=== PATIENT | female | born 1940 | race Caucasian/White ===

== ENCOUNTER 2018-07-16 03:05 | Inpatient (IN) | payer OTHER ==
[~2018-07-16] VITALS: Ht 170.2 cm; Wt 69.4 kg
[2018-07-16 03:05] VITALS: BP 143/55
--- NOTE | 2018-07-16 03:05 | NUR ---
PT PRESENTED ER WITH C/O SYNCOPE AND ABDOMINAL PAIN X 1 DAY. ONSET WAS 2100 LAST NIGHT. PT STATED SHE HAS N/V BUT DENIES DIARRHEA AND FEVER. NO FEVER AT THIS TIME. PT SON FOUND HER ON THE FLOOR AT HOME. PT IS A/O X 4. PT BOWEL SOUNDS AT IN ALL 4 Q.SKIN IS PINK/WARM/DRY; UNSTEADY GAIT; PATIENT POSITIONED FOR COMFORT; HOB ELEVATED; BEDRAILS UP X2; BED DOWN. ER MD MADE AWARE OF PT STATUS.
--- NOTE | 2018-07-16 03:05 | NUR ---
BIBA TO BED # 4
[2018-07-16] MEDS ORDERED: FAMOTIDINE 20 MG/2 ML VIAL IVP ONE (03:10)
[2018-07-16] MEDS ORDERED: ONDANSETRON 4 MG/2 ML VIAL IVP ONE ×2 (03:10→05:30)
[2018-07-16] MEDS ORDERED: NACL 0.9% 1,000 ML IV SCH (03:10)
--- NOTE | 2018-07-16 03:39 | NUR ---
PT WENT TO CT
[2018-07-16 03:46] LABS: ANION GAP 11.9 (8-16); CARBON DIOXIDE 28.9 mmol/L (21-32); CHLORIDE 105 mmol/L (98-107); CREATININE 0.9 mg/dL (0.6-1.3); GLUCOSE 196 mg/dL (74-106); POTASSIUM 4.8 mmol/L (3.5-5.1); SODIUM SERUM 141 mmol/L (136-145); UREA NITROGEN, BLOOD 27 mg/dL (7-18)
[2018-07-16 03:49] LABS: HEMATOCRIT 42.5 % (36-48); HEMOGLOBIN 13.9 g/dL (12.0-16.0); MEAN CORPUSCULAR HEMOGLOBIN 30 pg (27-31); MEAN CORPUSCULAR HGB CONC 33 g/dL (33-37); MEAN CORPUSCULAR VOLUME 90.5 fL (80-94); RED BLOOD CELL COUNT(AUTO) 4.69 MIL/uL (4.20-5.40); RED CELL DISTRIBUTION WIDTH 12.6 % (11.6-13.7); WHITE BLOOD COUNT (AUTO) 6.6 K/uL (4.8-10.8)
[2018-07-16 03:50] LABS: EOSINOPHILS % (MANUAL) 2 % (0-4); LYMPHOCYTES % (MANUAL) 7 % (20-46); MONOCYTES % (MANUAL) 3 % (5-12); PLATELET COUNT (AUTO) 249 K/uL (140-450)
[2018-07-16 03:52] LABS: ALBUMIN 3.7 g/dL (3.4-5.0); ASPARTATE AMINOTRANSFERASE 19 U/L (15-37); TOTAL BILIRUBIN 0.5 mg/dL (0.0-1.0)
[2018-07-16 03:57] LABS: PROTHROMBIN TIME 9.6 secs (10.8-13.4)
--- NOTE | 2018-07-16 04:08 | NUR ---
PT BACK FROM CT, VITALS STABLE. FAMILY AT BEDSIDE.
--- NOTE | 2018-07-16 04:13 | NUR ---
PT REFUSED MORPHINE, ER MD MADE AWARE.
--- NOTE | 2018-07-16 04:14 | NUR ---
PT FAMILY MEMBER CONTACT INFORMATION, JACKIE GOINSAY [phone], .
[2018-07-16 04:50] LABS: APPEARANCE,URINE CLEAR (CLEAR); COLOR,URINE YELLOW (YELLOW)
[2018-07-16 04:51] LABS: BILIRUBIN,URINE NEGATIVE (NEGATIVE); BLOOD, URINE NEGATIVE (NEGATIVE); LEUKOCYTE ESTERASE ,URINE NEGATIVE (NEGATIVE); NITRITE, URINE NEGATIVE (NEGATIVE); UGLUCOSE NEGATIVE (NEGATIVE)
--- NOTE | 2018-07-16 06:05 | NUR ---
PT SLEEPING IN BED, VITALS STABLE. WAITING PENDING ADMIT.
--- NOTE | 2018-07-16 06:45 | NUR ---
Patient will be admitted to care of DR. HOYT. Admited to TELEMETRY . Will go to room 105 A. Belongings list completed. Report to RANJEET PATTONRN TRAINING.VITALS STABLE.
--- NOTE | 2018-07-16 06:45 | NUR ---
Pt report given to RANJEET PATTONFLOOR SCRUBBER. Transfer of care at this time. VITALS STABLE
[2018-07-16] MEDS ORDERED: ACETAMINOPHEN 325 MG TAB PO PRN (06:55)
[2018-07-16] MEDS ORDERED: MORPHINE SULFATE 4 MG/ML SYR IVP PRN (06:55)
[2018-07-16] MEDS ORDERED: LORazepam 2 MG/ML VIAL IVP PRN (06:55)
--- NOTE | 2018-07-16 07:00 | NUR ---
RECEIVED BEDSIDE REPORT FROM COMPOUNDING SCALER CHARGE NURSE. PATIENT IS AWAKE, ALERT AND ORIENTEDX4. NO SIGNS OF DISTRESS ON RA. VITALS ARE WITHIN NORMAL LIMITS. FALL RISK PROTOCOL IN PLACE. ALERGY BAND IN PLACE. MRSA DONE. SKIN IS INTACT. IV ON L AC 20G SALINE LOCK. CLEAN, DRY AND INTACT. TELE MONITOR IN PLACE. AMBULATE W ASSIST. BED IN LOW POSITION , CALL LIGHT WITHIN REACH. ALL ADMISSION QUESTIONS ANSWERED. WILL CONTINUE TO MONITOR THE PATIENT
[2018-07-16 07:10] VITALS: BP 121/59
[2018-07-16] MEDS: DEXT 5% /NACL 0.9% 1,000 ML IV SCH ×2 (07:58→16:55)
[2018-07-16] MEDS: LEVOFLOXACIN 500 MG/D5W PREMIX 100 ML IV SCH (08:00)
--- NOTE | 2018-07-16 08:05 | NUR ---
ADMINISTERED IVF AND IV ANTIBIOTICS ORDERED. PATIENT TOLERATING WELL. WILL CONTINUE TO MONITOR THE PATIENT. PATIENT REFUSES TO EAT BREAKFAST AT THIS TIME.
--- NOTE | 2018-07-16 08:40 | NUR ---
PATIENT HAS BEEN SCREENED AND CATEGORIZED MODERATE NUTRITION RISK. PATIENT WILL BE SEEN WITHIN 3-5 DAYS OF ADMISSION. 07/18/18 07/20/[address]
--- NOTE | 2018-07-16 10:00 | NUR ---
PATIENT SLEEPING. NO SIGNS OF DISTRESS AT THIS TIME. WILL CONTINUE TO MONITOR THE PATIENT
--- NOTE | 2018-07-16 10:49 | NUR ---
CM NOTE PER [facility] DC CERAMIC CHEMIST AMINTA PH# [phone], FOR ANY DC NEEDS TO CONTACT ASSIGNED INPATIENT CM ROSCOE MARK PH# [phone] FAX# [phone]. PER [facility] CM ROSCOE MARK, IF PATIENT WILL HAVE ANY DC NEEDS AND NEEDS AUTHORIZATION TO BE CREATED ON WEEKENDS OR HOLIDAYS TO CONTACT THEIR [facility] INTAKE PH# [phone].
--- NOTE | 2018-07-16 10:50 | NUR ---
Dermatological Surgeon Note: I called patient's daughter Benita Cruz to obtain information about patient and also ask if there are any questions or concerns I should be aware of, no answer, left message.
--- NOTE | 2018-07-16 11:43 | NUR ---
DUE TO RECEIVING A FNS REFERRAL, PATIENT HAS BEEN CATEGORIZED HIGH RISK. PATIENT WILL BE SEEN WITHIN 1-2 DAYS FROM RECEIVING REFERRAL. 07/17/[address]
[2018-07-16 12:00] VITALS: BP 115/46
--- NOTE | 2018-07-16 12:39 | NUR ---
PATIENT COMPLAINTS OF PAIN ON L SIDE, SHE WANTS TO MAKE SURE A RIB WAS NOT BROKEN WHEN SHE FELL. SHE SAID IT HURTS WHEN SHE MOVES. OFFERED PAIN MEDS. PATIENT REFUSED. SHE SAID SHE WANTS THE DR TO BE NOTIFIED. TOLD HER ONCE THE XRAY RESULTS COME IN I WILL TELL DR ABOUT HER PAIN. SHE AGREED, PATIENT WILL EAT LUNCH SOON. WILL CONTINUE TO MONITOR THE PATIENT
[2018-07-16] MEDS: ONDANSETRON 4 MG/2 ML VIAL IVP PRN ×2 (14:11→20:23)
--- NOTE | 2018-07-16 14:15 | NUR ---
ADMINISTERED PRN ZOFRAN. PATIENT VOMITEDX1. NO SIGNS OF DISTRESS ON RA. WILL CONTINUE TO MONITOR THE PATIENT
[2018-07-16] MEDS ORDERED: SODIUM PHOSPHATE 118 ML ENEM RC PRN (15:05)
[2018-07-16] MEDS ORDERED: DOCUSATE SOD/SENNA 50/8.6 MG 1 TAB PO PRN (15:05)
[2018-07-16] MEDS ORDERED: POLYETHYLENE GLYCOL 17 GM/PKT PO SCH (15:10)
--- NOTE | 2018-07-16 15:41 | NUR ---
ADMINISTERED MIRALAX FOR CONSTIPATION. PATIENT TOLERATED WELL. NO SIGNS OF DISTRESS. WILL CONTINUE TO MONITOR THE PATIENT
[2018-07-16 16:00] VITALS: BP 118/55
--- NOTE | 2018-07-16 17:33 | NUR ---
PATIENT IS SLEEPING. NO SIGNS OF DISTRESS ON RA. WILL CONTINUE TO MONITOR THE PATIENT.
--- NOTE | 2018-07-16 17:55 | NUR ---
Solutions Development Analyst Note: I received a call from patient's daughter Benita Cruz , I introduced myself to her and explained to her I would like to gather information about patient and purpose. I also informed her that I wanted to know if she had any questions or concerns that I should be aware of. I informed her that I would be leaving office for day within 5 minutes and asked her if I could contact her tomorrow morning, she requested I contact her tomorrow after noon.
--- NOTE | 2018-07-16 18:58 | NUR ---
PATIENT REFUSED TO EAT DINNER. NO APPETITE.
--- NOTE | 2018-07-16 19:10 | NUR ---
GAVE BEDSIDE REPORT TO ADVERTISING SALES MANAGER NURSE. PATIENT ENDORSED IN STABLE CONDITION
--- NOTE | 2018-07-16 19:12 | NUR ---
RECEIVED BEDSIDE REPORT. PT A&O X4. PT STATES FEELS NAUSEAS AND WEAK. HAS NOT BEEN ABLE TO EAT ALL DAY. VS STABLE PER DAY SHIFT RN. PT WITH FIRST DEGREE HEART BLOCK. ON TELE MONITOR. SAFETY MEASURES IN PLACE. IV ON LEFT AC 20G D5NS AT 100ML. PT USES BEDPAN. BED ALARM ON AND LOWEST POSITION. CARE PLAN DISCUSSED WITH PT. CALL LIGHT WITHIN REACH.
[2018-07-16 20:00] VITALS: BP 126/56
[2018-07-16 20:20] VITALS: BP 141/57
--- NOTE | 2018-07-16 20:20 | NUR ---
PT WENT ON 3RD DEGREE HEART BLOCK. PER PTS DAUGHTER PT CLOSED EYES BUT DID NOT HAD SYNCOPE. VS 141/57 HEART RATE 84, O2 SAT 94% RR16. DR BUITRAGO AT BEDSIDE. PT HAS NAUSEA AND VOMITING ADMINISTERED ZOFRAN AND TYLENOL FOR HEAD ACHE. ORDERED PT TRANSFER TO ICU, EXTERNAL PACEMAKER, AND DOPAMINE.
[2018-07-16] MEDS ORDERED: DOPamine 400 MG/D5W PREMIX 250 ML IV SCH (20:35)
--- NOTE | 2018-07-16 21:39 | NUR ---
GRANDSON AT BEDSIDE PT SLEEPING NO DISTRESS NOTED. PT ON TELE MONITOR. SAFETY MEASURES IN PLACE.
--- NOTE | 2018-07-16 22:00 | NUR ---
TRANSFERRED PT TO ICU W/ 3RD DEGREE HB FURTHER OBSERVATION NEEDED. RECEIVED BEDSIDE REPORT FROM DIRECTOR TOXICOLOGY, RADHA, FOR CONTINUITY OF CARE. PATIENT IS IN STABLE CONDITION AT THIS TIME, AAOX4, AFEBRILE (TEMP=98.2) FULL CODE, ALLERGY TO SULFUR NOTED, STANDARD PRECAUTIONS MAINTAINED. HR =76, BP= 126/58, O2 SAT = 97%, RR= 20. LUNG SOUND CLEAR ON UPPER AND LOWER BILATERAL BASES. BOWEL SOUNDS ACTIVE IN ALL FOUR QUARDRRANTS. PT STATES MINOR PAIN IN LOWER BACK 09/05, [place] PAIN IS DUE TO "STAYING IN BED ALL DAY." NO MOORE CATHETER IN PLACE. INTACT/ASYMPTOMATIC, LEFT AC 20 GAUGE, INFUSING D5NS AT 100ML/HR. SKIN IS INTACT AND NORMAL IN COLOR. HOB ELEVATED ABOVE 30 DEG, FALL RISK PRECAUTIONS MAINTAINED. GRANDSON AT BEDSIDE. PT IS CALM AND COOPERATIVE.
--- NOTE | 2018-07-16 22:00 | NUR ---
TRANSFERRED PT TO ICU. GAVE REPORT TO WILL PATTON. PT WITH 3RD DEGREE HB REQUIRES FURTHER OBSERVATION. PT A&O X4. DENIES DIZZINESS OR SOB.
[2018-07-16] MEDS ORDERED: VASOPRESSIN 20 UNITS in NACL 0.9% 250 ML IV SCH (22:30)
--- NOTE | 2018-07-16 23:20 | NUR ---
VSS, SCDS PLACED ON BILATERAL LEGS.
[2018-07-17] VITALS (11 sets, daily range): BP systolic 97–147; BP diastolic 45–71
--- NOTE | 2018-07-17 00:03 | NUR ---
BED GONZALEZ PROVIDED TO PATIENT.STOOL IS FORMED, MEDIUM SIZED AND BROWN IN COLOR. MINIMAL URINE OUTPUT, YELLOW IN COLOR.
--- NOTE | 2018-07-17 01:08 | NUR ---
PT IS AWAKE, WATCHING TELEVISION. APPEARS TO BE WITHOUT DISTRESS, DAUGHTER AT BEDSIDE. NPO STATUS, FALL RISK, AND STANDARD PRECAUTIONS MAINTAINED.
[2018-07-17] MEDS: DEXT 5% /NACL 0.9% 1,000 ML IV SCH ×2 (01:15→14:26)
--- NOTE | 2018-07-17 02:22 | NUR ---
BEDPAN PROVIDED. URINE OUTPUT ESTIMATED 300ML. PT IS AWAKE AT THIS TIME, VSS, DAUGHTER AT BEDSIDE.
--- NOTE | 2018-07-17 04:46 | NUR ---
PT IS SLEEPING, D5NS INFUSING AT 100ML/HR INTO LEFT AC. SCDS ON BILATERAL LEGS. HOB ELEVATED, PT ABLE TO REPOSITION SELF IN BED.
--- NOTE | 2018-07-17 04:51 | NUR ---
LAB AT BEDSIDE TO COLLECT BLOOD SAMPLE.
[2018-07-17 05:47] LABS: BASOPHILS % (AUTO) 0.2 % (0.0-2.0); HEMATOCRIT 34.4 % (36-48); HEMOGLOBIN 11.6 g/dL (12.0-16.0); LYMPHOCYTES # (AUTO) 0.9 K/uL (2.5-16.5); LYMPHOCYTES % (AUTO) 24.8 % (20.5-51.1); MEAN CORPUSCULAR HEMOGLOBIN 30 pg (27-31); MEAN CORPUSCULAR HGB CONC 34 g/dL (33-37); MEAN CORPUSCULAR VOLUME 88.6 fL (80-94); MONOCYTES # (AUTO) 0.4 K/uL (0.8-1.0); MONOCYTES % (AUTO) 11.1 % (1.7-9.3); NEUTROPHILS # (AUTO) 2.2 K/uL (1.8-7.7); NEUTROPHILS % (AUTO) 62.9 % (42.2-75.2); PLATELET COUNT (AUTO) 175 K/uL (140-450); RED BLOOD CELL COUNT(AUTO) 3.88 MIL/uL (4.20-5.40); RED CELL DISTRIBUTION WIDTH 13.6 % (11.6-13.7); WHITE BLOOD COUNT (AUTO) 3.6 K/uL (4.8-10.8)
--- NOTE | 2018-07-17 06:40 | NUR ---
PT IS AWAKE. ORAL, PERINEAL AND BED BATH CARE PROVIDED AT BEDSIDE. URINE OUTPUT OF 300 RECORDED AT THIS TIME, CLEAR/YELLOW IN COLOR.
[2018-07-17] MEDS ORDERED: DEXTROSE 50% 50 ML SYR IVP PRN (06:55)
[2018-07-17 06:58] LABS: ALBUMIN 2.8 g/dL (3.4-5.0); ASPARTATE AMINOTRANSFERASE 16 U/L (15-37); CARBON DIOXIDE 28.6 mmol/L (21-32); CHLORIDE 110 mmol/L (98-107); CREATININE 0.8 mg/dL (0.6-1.3); GLUCOSE 138 mg/dL (74-106); MAGNESIUM 1.8 mg/dL (1.8-2.4); POTASSIUM 3.6 mmol/L (3.5-5.1); SODIUM SERUM 142 mmol/L (136-145); TOTAL BILIRUBIN 0.2 mg/dL (0.0-1.0); UREA NITROGEN, BLOOD 11 mg/dL (7-18)
--- NOTE | 2018-07-17 07:09 | NUR ---
RECEIVED BEDSIDE REPORT FROM OVERNIGHT HOUSEPERSON RN, WILL, FOR CONTINUITY OF CARE. PATIENT IS AAOX4, ABLE TO FOLLOW COMMANDS AND MAKE NEEDS KNOWN. PATIENT SKIN IS INTACT, WARM AND DRY, SHE HAS PERIPHERAL IV SITE TO LEFT AC, 20 GAUGE, ASYMPTOMATIC, PATIENT, INTACT. D5NS RUNNING AT 100ML/HR. PATIENT IS ON ROOM AIR, BREATHING EVEN AND UNLABORED, SR ON MONITOR, DENIES ANY PAIN. PER OVERNIGHT HOUSEPERSON RN, PATIENT HAD EPISODE OF THIRD DEGREE AV BLOCK IN TELE. PATIENT DENIES ANY SOB, NAUSEA OR VOMITING AT THIS TIME. SCD'S IN PLACE, HOB IS SEMI-FOWLERS. SAFETY PRECAUTIONS ASSESSED AND ENFORCED. CALL LIGHT WITHIN REACH. NO SIGNS OF DISTRESS AT THIS TIME. WILL CONTINUE TO MONITOR.
[2018-07-17] MEDS: BLOOD GLUCOSE MONITORING 1 DEV DEV FS SCH ×4 (07:19→20:21)
--- NOTE | 2018-07-17 07:20 | NUR ---
PROVIDED BEDSIDE REPORT TO MORNING SHIFT RN, ABDIRASHID, FOR CONTINUITY OF CARE. PATIENT IS IN STABLE CONDITION AT THIS TIME.
[2018-07-17] MEDS: LEVOFLOXACIN 500 MG/D5W PREMIX 100 ML IV SCH (07:59)
[2018-07-17] MEDS: POLYETHYLENE GLYCOL 17 GM/PKT PO SCH (08:07)
--- NOTE | 2018-07-17 08:59 | NUR ---
DR. BUITRAGO IN TO SEE AND EXAMINE PATIENT, UPDATED ON PATIENT CONDITION. WILL FOLLOW UP ON ANY ORDERS.
--- NOTE | 2018-07-17 10:38 | NUR ---
EXPENSE ANALYST AT BEDSIDE FOR ECHOCARDIOGRAM, NO SIGNS OF DISTRESS NOTED. WILL CONTINUE TO MONITOR
[2018-07-17] MEDS ORDERED: LIDOCAINE/EPI 2% 1:100000 20 ML VIAL INJ ONE ×2 (10:52→12:39)
[2018-07-17] MEDS ORDERED: ceFAZolin 1,000 MG VIAL ONE ×2 (10:54→12:22)
--- NOTE | 2018-07-17 11:25 | NUR ---
ECHOCARDIOGRAM COMPLETE, PATIENT TOLERATED WELL. OR NURSES AT BEDSIDE FOR ASSESSMENT. NO SIGNS OF DISTRESS AT THIS TIME. WILL CONTINUE TO MONITOR
[2018-07-17] MEDS ORDERED: MIDAZOLAM 2 MG/2 ML VIAL ONE (12:10)
[2018-07-17] MEDS ORDERED: fentaNYL 0.05 MG/ML VIAL ONE (12:10)
--- NOTE | 2018-07-17 12:11 | NUR ---
PATIENT LEFT TO OR FOR INSERTION OF PACEMAKER, ACCOMPANIED BY DR. TRAN AND OR NURSES, NO SIGNS OF DISTRESS NOTED.
--- NOTE | 2018-07-17 13:51 | NUR ---
Cad Designer Note: I called patient's daughter Benita Cruz no answer, left message.
--- NOTE | 2018-07-17 14:00 | NUR ---
PATIENT ARRIVED FROM OR FOR PERMANENT PACEMAKER INSERTION, ACCOMPANIED BY ANESTHESIOLOGIST AND OR NURSES. PATIENT'S VITALS ARE STABLE, NO SIGNS OF DISTRESS. PATIENT TOLERATED PROCEDURE WELL.
--- NOTE | 2018-07-17 14:17 | NUR ---
SPOKE WITH DR. TRAN, STATES PATIENT CAN BE STARTED ON CARDIAC/DIABETIC DIET AND CAN BE DOWNGRADED TO TELE.
--- NOTE | 2018-07-17 14:22 | NUR ---
07/17/18 RD INITIAL ASSESSMENT COMPLETED PLEASE REFER TO NUTRITION ASSESSMENT UNDER CARE ACTIVITY FOR ESTIMATED NUTRITIONAL NEEDS. 1. CONTINUE NPO MEDICALLY APPROPRIATE 2. WHEN PATIENT IS MEDICALLY STABLE CONSIDER ADVANCING DIET TO CCHO 60 GM, TOLERATED 3. PROVIDE NUTRITION EDUCATION ON DIABETES ON RD FOLLOW-UP VISIT 4. RD TO FOLLOW-UP 2-3 DAYS, HIGH RISK TAI ARIZA RD
[2018-07-17] MEDS ORDERED: PNEUMOCOCCAL VACCINE 23 MCG/0.5 ML VIAL IMVAC SCH (14:30)
--- NOTE | 2018-07-17 16:57 | NUR ---
PATIENT'S FAMILY AT BEDSIDE, UPDATED ON PATIENT'S CONDITION. NO SIGNS OF DISTRESS AT THIS TIME, DENIES ANY PAIN, SOB, N/V
[2018-07-17] MEDS: HYDROcodone/APAP 5/325 MG 1 TAB TAB PO PRN (17:16)
--- NOTE | 2018-07-17 17:18 | NUR ---
PATIENT COMPLAINS OF 5/10 PAIN, ADMINISTERED PRN NORCO PO. PATIENT TOLERATED WELL.
--- NOTE | 2018-07-17 17:40 | NUR ---
ASSUME CARE FROM ICU. PT AAOX4. AMBULATED FROM WHEELCHAIR TO BED. PT VS STABLE. S/P LEFT SIDED PACEMAKER INSERTION 07/17/18. LEFT ARM SLING IN PLACE . PT. SITTING ON EDGE OF BED EATING HER DINNER. CALL LIGHT LEFT WITHIN REACH. INSTRUCTED PT. TO CALL FOR ASSISTANCE. PT VERBALIZED UNDERSTANDING. ALL NEEDS MET AT THIS TIME. BED IN LOW POSITION.
--- NOTE | 2018-07-17 17:42 | NUR ---
DR. BUITRAGO AT BEDSIDE ORDERED D5NS TO RUN AT 100ML/HR FOR 3 MORE HRS. AND THEN DC AFTER THAT. PATIENT ON DIET NOW AND NO NEED FOR FLUIDS AT THIS TIME.
--- NOTE | 2018-07-17 17:55 | NUR ---
PATIENT TRANSFERRED TO [facility] BED 107 B VIA WHEELCHAIR, ACCOMPANIED BY ME AND ICU CONDUCTOR YARD. NO SIGNS OF ACUTE DISTRESS NOTED. ENDORSED CONTINUITY OF CARE TO ENDORSEMENT CLERKNEREIDA. PATIENT VITALS ARE STABLE, DENIES ANY PAIN, SOB, N, V AT THIS TIME.
--- NOTE | 2018-07-17 19:25 | NUR ---
ENDORSED PT. TO SALES ENGINEER FOR CONTINUITY OF CARE. PATIENT IN STABLE CONDITION. ALL NEEDS MET AT THIS TIME.
--- NOTE | 2018-07-17 19:26 | NUR ---
REPORT RECEIVED FROM AM NURSE AT BEDSIDE. PT IN STABLE CONDITION. AAOX4. NO COMPLAINTS OF PAIN. NO SOB. INTRODUCED SELF TO PT. BOARD UPDATED. IV SITE L AC 20G RUNNING D5NS@100ML/HR PATENT AND INTACT. ORDERS TO D/C IV@2100. SKIN WARM, DRY, AND INTACT WITH NO OPEN WOUNDS. PT HAS PACEMAKER. BED LOCKED IN LOW POSITION. CALL SALAMANCA WITHIN REACH. SAFETY PRECAUTIONS IN PLACE.
--- NOTE | 2018-07-17 20:00 | NUR ---
Survey Research Professor Notes: I attempted to contact Patient's daughter Benita to discuss and gather additional Patient's Information. Patients daughter did not responded and I left her a detail MSG in her voice mail to contact ZECHARIAH East on 07/18/18.
--- NOTE | 2018-07-17 20:21 | NUR ---
BS 166. 2 UNITS OF HUMALOG GIVEN. PT TOLERATED WELL.
[2018-07-17] MEDS: INSULIN LISPRO SLIDING SCALE 100 UNITS/ML VIAL SUBQ PRN (20:23)
--- NOTE | 2018-07-17 23:35 | NUR ---
PT SLEEPING COMFORTABLY IN BED. NO S/S OF DISTRESS NOTED. NO COMPLAINTS OF PAIN. NO SOB. WILL CONTINUE TO MONITOR.
[2018-07-18] VITALS: BP 121/55
--- NOTE | 2018-07-18 02:45 | NUR ---
PT ASKED FOR BEDPAN. VISUAL DESIGN LEAD AIDED PT ON GONZALEZ, CLEANED HER UP, AND HELPED REPOSITION PT.
[2018-07-18] MEDS: HYDROcodone/APAP 5/325 MG 1 TAB TAB PO PRN (02:47)
--- NOTE | 2018-07-18 02:47 | NUR ---
NORCO GIVEN FOR 6/10 PAIN. PT TOLERATED WELL.
[2018-07-18 04:00] VITALS: BP 149/64
[2018-07-18] MEDS: BLOOD GLUCOSE MONITORING 1 DEV DEV FS SCH ×4 (05:18→20:20)
--- NOTE | 2018-07-18 05:18 | NUR ---
BS 104. NO INSULIN COVERAGE NEEDED.
[2018-07-18 06:15] LABS: ANION GAP 7.8 (8-16); CARBON DIOXIDE 27.8 mmol/L (21-32); CHLORIDE 108 mmol/L (98-107); CREATININE 0.7 mg/dL (0.6-1.3); GLUCOSE 112 mg/dL (74-106); POTASSIUM 3.6 mmol/L (3.5-5.1); SODIUM SERUM 140 mmol/L (136-145); UREA NITROGEN, BLOOD 10 mg/dL (7-18)
[2018-07-18 06:29] LABS: BASOPHILS % (AUTO) 0.2 % (0.0-2.0); EOSINOPHILS # (AUTO) 0.1 K/uL (0-0.4); EOSINOPHILS % (AUTO) 1.5 % (0.0-4.0); HEMATOCRIT 33.6 % (36-48); HEMOGLOBIN 11.1 g/dL (12.0-16.0); LYMPHOCYTES # (AUTO) 1.3 K/uL (2.5-16.5); LYMPHOCYTES % (AUTO) 18.3 % (20.5-51.1); MEAN CORPUSCULAR HEMOGLOBIN 29 pg (27-31); MEAN CORPUSCULAR HGB CONC 33 g/dL (33-37); MEAN CORPUSCULAR VOLUME 88.6 fL (80-94); MONOCYTES # (AUTO) 0.6 K/uL (0.8-1.0); MONOCYTES % (AUTO) 8.7 % (1.7-9.3); NEUTROPHILS # (AUTO) 4.9 K/uL (1.8-7.7); NEUTROPHILS % (AUTO) 71.3 % (42.2-75.2); PLATELET COUNT (AUTO) 163 K/uL (140-450); RED BLOOD CELL COUNT(AUTO) 3.79 MIL/uL (4.20-5.40); RED CELL DISTRIBUTION WIDTH 13.3 % (11.6-13.7); WHITE BLOOD COUNT (AUTO) 6.9 K/uL (4.8-10.8)
--- NOTE | 2018-07-18 07:05 | NUR ---
REPORT GIVEN TO AM NURSE AT BEDSIDE. PT IN STABLE CONDITION.
--- NOTE | 2018-07-18 07:06 | NUR ---
RECEIVED REPORT FROM CONDUCTOR AND ENGINEER NURSE. PATIENT SITTING IN BED COMFORTABLY. PAIN WITHIN TOLERABLE AT THIS TIME S/P LEFT CHEST PACEMAKER INSERTION ON 07/17/18. AAOX4, CALM, COOPERATIVE, SKIN COLOR APPROPRIATE TO ETHNICITY, WARM TO TOUCH. ABDOMEN SOFT, NON-DISTENDED. LUNGS CTA ON ALL LOBES. IV SITE INTACT, PATENT, ON SALINE LOCK. REVIEWED PLAN OF CARE WITH PATIENT. PATIENT VERBALIZED UNDERSTANDING. SAFETY MEASURES IN PLACE, CALL LIGHT WITHIN REACH. WILL CONTINUE TO MONITOR.
[2018-07-18 08:00] VITALS: BP 136/59
[2018-07-18] MEDS: ONDANSETRON 4 MG/2 ML VIAL IVP PRN (08:32)
[2018-07-18] MEDS: POLYETHYLENE GLYCOL 17 GM/PKT PO SCH (08:32)
--- NOTE | 2018-07-18 08:42 | NUR ---
PATIENT LYING DOWN IN BED WITH COMPLAINTS OF NAUSEA, NO VOMITING. ZOFRAN GIVEN PER ORDERS. REFUSED MIRALAX PATIENT SAYS SHE HAD BM YESTERDAY. WILL CONTINUE TO MONITOR.
[2018-07-18] MEDS ORDERED: traMADol 50 MG TAB PO PRN (10:15)
--- NOTE | 2018-07-18 10:49 | NUR ---
ASSISTED PATIENT IN USING BEDPAN AND CLEANING AFTERWARDS. WILL CONTINUE TO MONITOR
--- NOTE | 2018-07-18 11:42 | NUR ---
PATIENT COMPLAINS OF PAIN ON LEFT CHEST S/P PACEMAKER INSERTION. ULTRAM GIVEN PER ORDERS. WILL CONTINUE TO MONITOR.
[2018-07-18 12:00] VITALS: BP 145/73
--- NOTE | 2018-07-18 13:37 | NUR ---
PATIENT SITTING IN BED WITH LUNCH TRAY IN FRONT. NO DISTRESS NOTED. DENIES ANY NAUSEA AT THIS TIME. PAIN WITHIN TOLERABLE. WILL CONTINUE TO MONITOR.
[2018-07-18 16:00] VITALS: BP 143/93
--- NOTE | 2018-07-18 16:00 | NUR ---
PATIENT LYING DOWN IN BED SLEEPING, AROUSABLE BY VOICE. NO DISTRESS NOTED. DENIES ANY PAIN. WILL CONTINUE TO MONITOR.
--- NOTE | 2018-07-18 18:00 | NUR ---
PATIENT SITTING IN BED TALKING ON THE PHONE WITH DINNER TRAY IN FRONT. NO DISTRESS NOTED. WILL CONTINUE TO MONITOR.
[2018-07-18] MEDS ORDERED: DOCUSATE SOD/SENNA 50/8.6 MG 1 TAB PO PRN (18:30)
--- NOTE | 2018-07-18 19:21 | NUR ---
GAVE REPORT TO STRINGER MACHINE TENDER NURSE FOR CONTINUITY OF CARE. PATIENT IN STABLE CONDITION.
--- NOTE | 2018-07-18 19:22 | NUR ---
REPORT RECEIVED FROM AM NURSE AT BEDSIDE. PT IN STABLE CONDITION. AAOX4. NO COMPLAINTS OF PAIN. NO SOB. INTRODUCED SELF TO PT. BOARD UPDATED. IV SITE L AC 20G SL PATENT AND INTACT. SKIN WARM, DRY, AND INTACT WITH NO OPEN WOUNDS. PT HAS PACEMAKER. BED LOCKED IN LOW POSITION. CALL SALAMANCA WITHIN REACH. SAFETY PRECAUTIONS IN PLACE.
[2018-07-18 20:00] VITALS: BP 148/79
--- NOTE | 2018-07-18 20:20 | NUR ---
BS 122. NO INSULIN COVERAGE NEEDED.
--- NOTE | 2018-07-18 22:45 | NUR ---
PT SLEEPING COMFORTABLY SUPINE. NO S/S OF DISTRESS NOTED. RESPIRATIONS EVEN, UNLABORED, AND WNL. WILL CONTINUE TO MONITOR.
[2018-07-19] VITALS: BP 129/49
--- NOTE | 2018-07-19 01:45 | NUR ---
PT SLEEPING RIGHT LATERAL COMFORTABLY. NO COMPLAINTS OF PAIN. NO SOB. WILL CONTINUE TO MONITOR.
--- NOTE | 2018-07-19 02:47 | NUR ---
NORCO GIVEN FOR 02/03 PAIN PO BY YIN PATTON DURING COVERAGE. PT TOLERATED WELL. Addendum: 07/19/18 at 0344 by Trent Esteves RN MEDICATION GIVEN AT 0330.
[2018-07-19] MEDS: HYDROcodone/APAP 5/325 MG 1 TAB TAB PO PRN ×2 (03:30→03:41)
[2018-07-19 04:00] VITALS: BP 150/66
--- NOTE | 2018-07-19 04:15 | NUR ---
PT VS STABLE. NO S/S OF DISTRESS NOTED. WILL CONTINUE TO MONITOR.
[2018-07-19] MEDS: BLOOD GLUCOSE MONITORING 1 DEV DEV FS SCH ×2 (05:45→11:30)
--- NOTE | 2018-07-19 05:45 | NUR ---
BS 113. NO INSULIN COVERAGE NEEDED.
--- NOTE | 2018-07-19 07:15 | NUR ---
REPORT GIVEN TO AM NURSE AT BEDSIDE. PT IN STABLE CONDITION.
--- NOTE | 2018-07-19 07:16 | NUR ---
RECEIVED REPORT FROM NIGHT NURSE FOR CONTINUITY OF CARE. RESPIRATIONS EVEN AND UNLABORED. IV INTACT, PATENT. SKIN INTACT. PT IN STABLE CONDITION. SAFETY MEASURES IN PLACE. CALL LIGHT AT BEDSIDE. WILL CONTINUE TO MONITOR.
[2018-07-19 08:00] VITALS: BP 134/71
[2018-07-19] MEDS: POLYETHYLENE GLYCOL 17 GM/PKT PO SCH (08:54)
--- NOTE | 2018-07-19 09:00 | NUR ---
GIVEN DUE MEDICATIONS. PT IN STABLE CONDITION. WILL CONTINUE TO MONITOR
--- NOTE | 2018-07-19 11:30 | NUR ---
PT LYING IN BED SLEEPING. RESPIRATIONS EVEN AND UNLABORED. WILL CONTINUE TO MONITOR.
[2018-07-19 12:00] VITALS: BP 145/57
[2018-07-19] MEDS: INSULIN LISPRO SLIDING SCALE 100 UNITS/ML VIAL SUBQ PRN (12:59)
--- NOTE | 2018-07-19 13:30 | NUR ---
PT KNITTING IN BED. RESPIRATIONS EVEN AND UNLABORED WILL CONTINUE TO MONITOR.
[2018-07-19] MEDS ORDERED: PERI PO (15:02)
[2018-07-19] MEDS ORDERED: ACET-9525 PO (15:02)
[2018-07-19] MEDS ORDERED: ONDA4SOL PO (15:02)
[2018-07-19] MEDS ORDERED: PNEUMOCOCCAL VACCINE 23 MCG/0.5 ML VIAL IMVAC SCH (15:40)
[2018-07-19 15:45] VITALS: BP 145/57
--- NOTE | 2018-07-19 16:30 | NUR ---
PT GIVEN DISCHARGE INFORMATION AND RX PRESCRIPTIONS. ALL PT'S QUESTIONS ANSWERED. PNA VACCINE GIVEN. IV DISCONTINUED LUMEN INTACT. PT GIVEN SUPPLIES TO CLEAN HERSELF REQUESTED BY PT.
--- NOTE | 2018-07-19 17:25 | NUR ---
PT WAS DISCHARGED AND WHEELED TO LOBBY IN WHEEL CHAIR WHERE ID BANDS WERE REMOVED. PT WAS IN STABLE CONDITION.
== END 2018-07-19 17:25 | disposition home or self-care (01) | DRG 243 ==
LOC: MED 03:05 → MTU 06:25 → MIC 22:05 → MTU 07-17 17:50
PROVIDERS: ADMIT Hospitalist; ATTEND Hospitalist
PROC: 02HK3JZ Insertion of Pacemaker Lead into Right Ventricle, Percutaneous Approach (ICD-10-PCS; 2018-07-17)
PROC: 02H63JZ Insertion of Pacemaker Lead into Right Atrium, Percutaneous Approach (ICD-10-PCS; 2018-07-17)
PROC: 0JH606Z Insertion of Pacemaker, Dual Chamber into Chest Subcutaneous Tissue and Fascia, Open Approach (ICD-10-PCS; principal; 2018-07-17 11:00)
PROC: 3E0234Z Introduction of Serum, Toxoid and Vaccine into Muscle, Percutaneous Approach (ICD-10-PCS; 2018-07-19)
DX: I49.5 Sick sinus syndrome (principal); I44.2 Atrioventricular block, complete; K52.9 Noninfective gastroenteritis and colitis, unspecified; E11.9 Type 2 diabetes mellitus without complications; E86.0 Dehydration; K74.60 Unspecified cirrhosis of liver; K76.0 Fatty (change of) liver, not elsewhere classified; E78.5 Hyperlipidemia, unspecified; I11.9 Hypertensive heart disease without heart failure; Z23 Encounter for immunization; Z88.2 Allergy status to sulfonamides; K80.20 Calculus of gallbladder without cholecystitis without obstruction
CPT/HCPCS: 36415; 70450; 71045; 74018; 76705; 77003; 80048; 80053; 81003; 82948; 83690; 83735; 83880; 84484; 85025; 85610; 85730; 87081; 90732; 96361; 96374; 96375; 96376; 99285; J0690; J1815; J1956; J2001; J2060; J2250; J2405; J3010; J3490; J7042; Q0092

== ENCOUNTER 2019-05-07 14:32 | Emergency (ER) | payer OTHER ==
[~2019-05-07] VITALS: Ht 170.2 cm; Wt 68.0 kg
[~2019-05-07 14:32] MED LIST: ACET-9525 PO; ONDA4SOL8 PO; PERI PO
[2019-05-07 14:39] VITALS: BP 117/77
--- NOTE | 2019-05-07 14:45 | NUR ---
WAIT AT LOBBY.
--- NOTE | 2019-05-07 15:42 | NUR ---
AMBULATED TO CHAIR B
--- NOTE | 2019-05-07 15:50 | NUR ---
C/O R SIDE POSTERIOR NECK PAIN 8/10 AND SHARP X2 DAYS. PT DENIES TRAUMA/INJURY. STATES SHE HAS HAD THIS NECK PROBLEM FOR 35 YEARS, AND SHE HAD A CORTISONE SHOT INTO HER NECK ABOUT 12 YRS AGO AND THAT HELPED. SHE IS REQUESTING A CORTISONE SHOT TODAY. PT SITTING IN CHAIR AT THIS TIME.
--- NOTE | 2019-05-07 17:16 | NUR ---
PATIENT LEFT WITHOUT BEING SEEN BY DR. ZAVALA. NO FURTHER CARE PROVIDED FOR PATIENT.
== END 2019-05-07 17:16 | disposition left against medical advice (07) ==
LOC: MED 14:32
DX: M54.2 Cervicalgia (principal); Z53.21 Procedure and treatment not carried out due to patient leaving prior to being seen by health care provider